=== PATIENT | female | born 1950 | race Caucasian/White ===

== ENCOUNTER 2018-02-22 16:07 | Inpatient (IN) | payer MEDICARE, OTHER ==
[2018-02-22] MEDS ORDERED: SODIUM CHLORIDE 0.9% 1,000 ML IV ONE (16:22)
--- NOTE | 2018-02-22 16:26 | ED ---
General Adult HPI - General Stated complaint: altered mental status Time Seen by Provider: 02/22/18 16:10 Source: RN notes reviewed - History of Present Illness Initial comments: This is a 67-year-old female presents emergency Department via EMS. Roommate called EMS because they stated that she had not the couch and 5-6 days. Patient is an alcoholic however friend stated he hadn't water any alcohol on a couple of days. Patient is a very poor historian and cannot contribute to any of the history she currently is alert and oriented 1 does not know which hospital she is at and does not know the date or the year. EMS also states she was too weak to walk up the stairs which is been ongoing for quite a while but her not getting off the couch for days is unusual. Patient doesn't have any complaints and doesn't appear to be distress but she appears to be very dry. There is been no history of any trauma. At this point time I have no further history. - Related Data Home Medications Medication Instructions Recorded Confirmed Aspirin 325 mg PO DAILY PRN 08/28/13 11/02/14 traZODone HCL [Desyrel] 50 mg PO QID 11/20/13 11/02/14 Pregabalin [Lyrica] 75 mg PO DAILY 09/11/14 11/02/14 clonazePAM [KlonoPIN] 0.5 mg PO BID 09/11/14 11/02/14 Gabapentin [Neurontin] 400 mg PO BID 11/02/14 11/02/14 Previous Rx's Medication Instructions Recorded Moxifloxacin [Vigamox] 1 drops OP QID 30 Days bottle 09/13/14 Acetaminophen-Codeine 300-30mg 1 each PO Q6H PRN #20 tablet 11/02/14 [Tylenol #3] Ibuprofen [Motrin] 600 mg PO Q6HR PRN #40 day 11/02/14 Allergies Allergy/AdvReac Type Severity Reaction Status Date / Time No Known Allergies Allergy Verified 11/02/14 12:12 Review of Systems ROS Statement: Those systems with pertinent positive or pertinent negative responses have been documented in the HPI. ROS Other: All systems not noted in ROS Statement are negative. Past Medical History Additional Past Medical History / Comment(s): drug abuse, broken collar bone, hepatitis C History of Any Multi-Drug Resistant Organisms: None Reported Additional Past Surgical History / Comment(s): abd surgery as an . right knee Past Anesthesia/Blood Transfusion Reactions: No Reported Reaction Past Psychological History: Anxiety, Depression Smoking Status: Current every day smoker Past Alcohol Use History: Abuse, Daily Past Drug Use History: Cocaine, Heroin, IV Drug Use, Marijuana, Methamphetamine , Opiates, Prescription Drug Abuse Additional Drug Use History / Comment(s): Pt states she was clean from drugs and alcohol for over 30 days when she relapsed last night and did heroin and drank a pint of vodka General Exam - General Exam Comments Initial Comments: GENERAL: Patient is well-developed and well-nourished. Patient is nontoxic and well- hydrated and is in no acute distress. ENT: Neck is soft and supple. No significant lymphadenopathy is noted. Patient has dry mucous membranes Neck has full range of motion without eliciting any pain. EYES: The sclera were anicteric and conjunctiva were pink and moist. Extraocular movements were intact and pupils were equal round and reactive to light. Eyelids were unremarkable. PULMONARY: Unlabored respirations. Good breath sounds bilaterally. No audible rales rhonchi or wheezing was noted. CARDIOVASCULAR: There is a regular rate and rhythm without any murmurs gallops or rubs. Femoral pulses are equal bilaterally. DP pulses are normal. ABDOMEN: Soft and nontender with normal bowel sounds. No palpable organomegaly was noted. There is no palpable pulsatile mass. SKIN: Skin is clear with no lesions or rashes and otherwise unremarkable. NEUROLOGIC: Patient is alert and oriented 1. Cranial nerves II through XII are grossly intact. Motor and sensory are also intact. Motor and sensory appear to be intact but she is diffusely weak bilaterally Normal speech, volume and content. Symmetrical smile. MUSCULOSKELETAL: Normal extremities with adequate strength and full range of motion. No lower extremity swelling or edema. No calf tenderness. LYMPHATICS: No significant lymphadenopathy is noted PSYCHIATRIC: Unable to assess since she is only alert and oriented 1 Course Vital Signs 02/22/18 02/22/18 02/22/18 16:30 16:35 17:00 Temperature 98.3 F Pulse Rate 92 98 101 H Respiratory 18 18 17 Rate Blood Pressure 118/77 118/77 121/75 O2 Sat by Pulse 99 100 100 Oximetry 02/22/18 02/22/18 02/22/18 17:30 18:00 18:30 Temperature Pulse Rate 96 99 80 Respiratory 17 16 18 Rate Blood Pressure 118/81 115/57 128/87 O2 Sat by Pulse 97 98 97 Oximetry Medical Decision Making - Medical Decision Making EKG shows sinus tachycardia 103 bpm ID interval 228 QRSs 82 QT interval 358 QTC is 460. Patient's EKG shows slight ST segment depression in precordial leads V4 V5 and V6. Urine came back with greater than 182 white cells I treated the patient for urinary tract infection with 2 g Rocephin. Computed tomography scan of the brain shows no acute normalities. I spoke with Dr. Olivo and he agreed to admit the patient admitted the patient wrote admitting orders. - Lab Data Result diagrams: 02/22/18 16:30 02/22/18 16:30 Lab Results 02/22/18 02/22/18 02/22/18 Range/Units 16:30 16:30 16:30 WBC (3.8-10.6) k/uL RBC (3.80-5.40) m/uL Hgb (11.4-16.0) gm/dL Hct (34.0-46.0) % MCV (80.0-100.0) fL MCH (25.0-35.0) pg MCHC (31.0-37.0) g/dL RDW (11.5-15.5) % Plt Count (150-450) k/uL Neutrophils % % Lymphocytes % % Monocytes % % Eosinophils % % Basophils % % Neutrophils # (1.3-7.7) k/uL Lymphocytes # (1.0-4.8) k/uL Monocytes # (0-1.0) k/uL Eosinophils # (0-0.7) k/uL Basophils # (0-0.2) k/uL Macrocytosis PT (9.0-12.0) sec INR (<1.2) APTT (22.0-30.0) sec Sodium 142 (137-145) mmol/L Potassium 3.5 (3.5-5.1) mmol/L Chloride 98 (98-107) mmol/L Carbon Dioxide 25 (22-30) mmol/L Anion Gap 19 mmol/L BUN 28 H (7-17) mg/dL Creatinine 0.57 (0.52-1.04) mg/dL Est GFR (CKD-EPI)AfAm >90 (>60 ml/min/1.73 sqM) Est GFR (CKD-EPI)NonAf >90 (>60 ml/min/1.73 sqM) Glucose 121 H (74-99) mg/dL POC Glucose (mg/dL) (75-99) mg/dL POC Glu Spreading Machine Operator ID Plasma Lactic Acid Rich 2.3 H* (0.7-2.0) mmol/L Calcium 9.4 (8.4-10.2) mg/dL Total Bilirubin 0.8 (0.2-1.3) mg/dL AST 60 H (14-36) U/L ALT 26 (9-52) U/L Alkaline Phosphatase 92 (38-126) U/L Ammonia <9 (<30) umol/L Total Creatine Kinase 484 H (30-135) U/L CK-MB (CK-2) 3.5 H (0.0-2.4) ng/mL CK-MB (CK-2) Rel Index 0.7 Troponin I 0.026 (0.000-0.034) ng/mL Total Protein 7.6 (6.3-8.2) g/dL Albumin 4.3 (3.5-5.0) g/dL Urine Color Urine Appearance (Clear) Urine pH (5.0-8.0) Ur Specific [place] (1.001-1.035) Urine Protein (Negative) Urine Glucose (UA) (Negative) Urine Ketones (Negative) Urine Blood (Negative) Urine Nitrite (Negative) Urine Bilirubin (Negative) Urine Urobilinogen (<2.0) mg/dL Ur Leukocyte Esterase (Negative) Urine RBC (0-5) /hpf Urine WBC (0-5) /hpf Amorphous Sediment (None) /hpf Urine Bacteria (None) /hpf Hyaline Casts (0-2) /lpf Urine Mucus (None) /hpf Urine Opiates Screen (NotDetected) Ur Oxycodone Screen (NotDetected) Urine Methadone Screen (NotDetected) Ur Propoxyphene Screen (NotDetected) Ur Barbiturates Screen (NotDetected) U Tricyclic Antidepress (NotDetected) Ur Phencyclidine Scrn (NotDetected) Ur Amphetamines Screen (NotDetected) U Methamphetamines Scrn (NotDetected) U Benzodiazepines Scrn (NotDetected) Urine Cocaine Screen (NotDetected) U Marijuana (THC) Screen (NotDetected) Serum Alcohol <10 mg/dL 02/22/18 02/22/18 02/22/18 Range/Units 16:30 16:30 16:55 WBC 10.7 H (3.8-10.6) k/uL RBC 3.42 L (3.80-5.40) m/uL Hgb 10.9 L (11.4-16.0) gm/dL Hct 34.1 (34.0-46.0) % MCV 99.8 (80.0-100.0) fL MCH 31.9 (25.0-35.0) pg MCHC 32.0 (31.0-37.0) g/dL RDW 15.5 (11.5-15.5) % Plt Count 557 H (150-450) k/uL Neutrophils % 85 % Lymphocytes % 9 % Monocytes % 5 % Eosinophils % 1 % Basophils % 0 % Neutrophils # 9.1 H (1.3-7.7) k/uL Lymphocytes # 1.0 (1.0-4.8) k/uL Monocytes # 0.5 (0-1.0) k/uL Eosinophils # 0.1 (0-0.7) k/uL Basophils # 0.0 (0-0.2) k/uL Macrocytosis Slight PT 10.2 (9.0-12.0) sec INR 0.9 (<1.2) APTT 21.2 L (22.0-30.0) sec Sodium (137-145) mmol/L Potassium (3.5-5.1) mmol/L Chloride (98-107) mmol/L Carbon Dioxide (22-30) mmol/L Anion Gap mmol/L BUN (7-17) mg/dL Creatinine (0.52-1.04) mg/dL Est GFR (CKD-EPI)AfAm (>60 ml/min/1.73 sqM) Est GFR (CKD-EPI)NonAf (>60 ml/min/1.73 sqM) Glucose (74-99) mg/dL POC Glucose (mg/dL) 133 H (75-99) mg/dL POC Glu Spreading Machine Operator ID Sarah Covarrubias Plasma Lactic Acid Rich (0.7-2.0) mmol/L Calcium (8.4-10.2) mg/dL Total Bilirubin (0.2-1.3) mg/dL AST (14-36) U/L ALT (9-52) U/L Alkaline Phosphatase (38-126) U/L Ammonia (<30) umol/L Total Creatine Kinase (30-135) U/L CK-MB (CK-2) (0.0-2.4) ng/mL CK-MB (CK-2) Rel Index Troponin I (0.000-0.034) ng/mL Total Protein (6.3-8.2) g/dL Albumin (3.5-5.0) g/dL Urine Color Urine Appearance (Clear) Urine pH (5.0-8.0) Ur Specific [place] (1.001-1.035) Urine Protein (Negative) Urine Glucose (UA) (Negative) Urine Ketones (Negative) Urine Blood (Negative) Urine Nitrite (Negative) Urine Bilirubin (Negative) Urine Urobilinogen (<2.0) mg/dL Ur Leukocyte Esterase (Negative) Urine RBC (0-5) /hpf Urine WBC (0-5) /hpf Amorphous Sediment (None) /hpf Urine Bacteria (None) /hpf Hyaline Casts (0-2) /lpf Urine Mucus (None) /hpf Urine Opiates Screen (NotDetected) Ur Oxycodone Screen (NotDetected) Urine Methadone Screen (NotDetected) Ur Propoxyphene Screen (NotDetected) Ur Barbiturates Screen (NotDetected) U Tricyclic Antidepress (NotDetected) Ur Phencyclidine Scrn (NotDetected) Ur Amphetamines Screen (NotDetected) U Methamphetamines Scrn (NotDetected) U Benzodiazepines Scrn (NotDetected) Urine Cocaine Screen (NotDetected) U Marijuana (THC) Screen (NotDetected) Serum Alcohol mg/dL 02/22/18 Range/Units 17:05 WBC (3.8-10.6) k/uL RBC (3.80-5.40) m/uL Hgb (11.4-16.0) gm/dL Hct (34.0-46.0) % MCV (80.0-100.0) fL MCH (25.0-35.0) pg MCHC (31.0-37.0) g/dL RDW (11.5-15.5) % Plt Count (150-450) k/uL Neutrophils % % Lymphocytes % % Monocytes % % Eosinophils % % Basophils % % Neutrophils # (1.3-7.7) k/uL Lymphocytes # (1.0-4.8) k/uL Monocytes # (0-1.0) k/uL Eosinophils # (0-0.7) k/uL Basophils # (0-0.2) k/uL Macrocytosis PT (9.0-12.0) sec INR (<1.2) APTT (22.0-30.0) sec Sodium (137-145) mmol/L Potassium (3.5-5.1) mmol/L Chloride (98-107) mmol/L Carbon Dioxide (22-30) mmol/L Anion Gap mmol/L BUN (7-17) mg/dL Creatinine (0.52-1.04) mg/dL Est GFR (CKD-EPI)AfAm (>60 ml/min/1.73 sqM) Est GFR (CKD-EPI)NonAf (>60 ml/min/1.73 sqM) Glucose (74-99) mg/dL POC Glucose (mg/dL) (75-99) mg/dL POC Glu Spreading Machine Operator ID Plasma Lactic Acid Rich (0.7-2.0) mmol/L Calcium (8.4-10.2) mg/dL Total Bilirubin (0.2-1.3) mg/dL AST (14-36) U/L ALT (9-52) U/L Alkaline Phosphatase (38-126) U/L Ammonia (<30) umol/L Total Creatine Kinase (30-135) U/L CK-MB (CK-2) (0.0-2.4) ng/mL CK-MB (CK-2) Rel Index Troponin I (0.000-0.034) ng/mL Total Protein (6.3-8.2) g/dL Albumin (3.5-5.0) g/dL Urine Color Dark Brown Urine Appearance Cloudy H (Clear) Urine pH 6.0 (5.0-8.0) Ur Specific [place] 1.019 (1.001-1.035) Urine Protein 1+ H (Negative) Urine Glucose (UA) Negative (Negative) Urine Ketones 3+ H (Negative) Urine Blood Negative (Negative) Urine Nitrite Negative (Negative) Urine Bilirubin 1+ H (Negative) Urine Urobilinogen 6.0 (<2.0) mg/dL Ur Leukocyte Esterase Large H (Negative) Urine RBC 5 (0-5) /hpf Urine WBC >182 H (0-5) /hpf Amorphous Sediment Few H (None) /hpf Urine Bacteria Occasional H (None) /hpf Hyaline Casts 39 H (0-2) /lpf Urine Mucus Many H (None) /hpf Urine Opiates Screen Not Detected (NotDetected) Ur Oxycodone Screen Not Detected (NotDetected) Urine Methadone Screen Not Detected (NotDetected) Ur Propoxyphene Screen Not Detected (NotDetected) Ur Barbiturates Screen Not Detected (NotDetected) U Tricyclic Antidepress Not Detected (NotDetected) Ur Phencyclidine Scrn Not Detected (NotDetected) Ur Amphetamines Screen Not Detected (NotDetected) U Methamphetamines Scrn Not Detected (NotDetected) U Benzodiazepines Scrn Not Detected (NotDetected) Urine Cocaine Screen Not Detected (NotDetected) U Marijuana (THC) Screen Not Detected (NotDetected) Serum Alcohol mg/dL Disposition Clinical Impression: Dehydration, History of alcoholism, Urinary tract infection, Altered mental status Disposition: ADMITTED IP TO THIS [facility] Referrals: None,Stated [Primary Care Provider] - 1-2 days Time of Disposition: 19:20
[2018-02-22] MEDS ORDERED: SODIUM CHLORIDE 0.9% 1,000 ML with MVI, ADULT NO.4 WITH VIT K 10 ML, THIAMINE 100 MG, F... IV ONE ×4 (16:30)
[2018-02-22 17:08] LABS: ALT 26 U/L (9-52); AST 60 U/L (14-36); Albumin 4.3 g/dL (3.5-5.0); Alcohol <10 mg/dL; Alkaline Phosphatase 92 U/L (38-126); Ammonia <9 umol/L (<30); Anion Gap 19 mmol/L; Blood Urea Nitrogen 28 mg/dL (7-17); Calcium 9.4 mg/dL (8.4-10.2); Carbon Dioxide 25 mmol/L (22-30); Chloride 98 mmol/L (98-107); Glucose 121 mg/dL (74-99); Potassium 3.5 mmol/L (3.5-5.1); Sodium 142 mmol/L (137-145); Total Bilirubin 0.8 mg/dL (0.2-1.3); Total Protein 7.6 g/dL (6.3-8.2)
[2018-02-22 17:10] LABS: Glucose,Whole Blood 133 mg/dL (75-99)
[2018-02-22 17:11] LABS: Basophils % (A) 0 %; Eosinophils # (A) 0.1 k/uL (0-0.7); Eosinophils % (A) 1 %; HCT 34.1 % (34.0-46.0); HGB 10.9 gm/dL (11.4-16.0); Lymphocytes % (A) 9 %; MCH 31.9 pg (25.0-35.0); MCV 99.8 fL (80.0-100.0); Macrocytosis Slight; Mean Platelet Volume 7.3; Monocytes # (A) 0.5 k/uL (0-1.0); Monocytes % (A) 5 %; Neutrophils # (A) 9.1 k/uL (1.3-7.7); Neutrophils % (A) 85 %; Platelet Count 557 k/uL (150-450); RBC 3.42 m/uL (3.80-5.40); RDW 15.5 % (11.5-15.5); WBC 10.7 k/uL (3.8-10.6)
[2018-02-22 17:16] LABS: Lactic Acid, Venous 2.3 mmol/L (0.7-2.0)
[2018-02-22 17:24] LABS: Creatine Kinase MB 3.5 ng/mL (0.0-2.4); Troponin I 0.026 ng/mL (0.000-0.034)
[2018-02-22 17:25] LABS: INR 0.9 (<1.2); Prothrombin Time 10.2 sec (9.0-12.0)
[2018-02-22 17:26] LABS: Amorphous Sediment,Urine Few /hpf; Appearance,Urine Cloudy (Clear); Bacteria,Urine Occasional /hpf; Bilirubin,Urine 1+ (Negative); Blood,Urine Negative (Negative); Color,Urine Dark Brown; Glucose,Urine (UA) Negative (Negative); Hyaline Casts,Urine 39 /lpf (0-2); Ketones,Urine 3+ (Negative); Leukocyte Esterase,Urine Large (Negative); Mucus,Urine Many /hpf; Nitrite,Urine Negative (Negative); Protein,Urine 1+ (Negative); RBC,Urine 5 /hpf (0-5); Specific Gravity,Urine 1.019 (1.001-1.035); WBC,Urine >182 /hpf (0-5)
[2018-02-22 17:34] LABS: Partial Thromboplastin Time 21.2 sec (22.0-30.0)
[2018-02-22 17:36] LABS: Amphetamine Screen,Urine Not Detected (NotDetected); Barbiturate Screen,Urine Not Detected (NotDetected); Benzodiazepines Screen,Urine Not Detected (NotDetected); Cocaine Screen,Urine Not Detected (NotDetected); Methadone Screen, Urine Not Detected (NotDetected); Opiate Screen,Urine Not Detected (NotDetected); Oxycodone Screen, Urine Not Detected (NotDetected); Phencyclidine Screen,Urine Not Detected (NotDetected); Tricyclic Antidepressant,Urine Not Detected (NotDetected); Urn Cannabinoid Scrn Not Detected (NotDetected)
[2018-02-22] MEDS ORDERED: cefTRIAXone 2,000 MG in SODIUM CHLORIDE 0.9% 100 ML IVPB STA (17:50)
--- NOTE | 2018-02-22 18:16 | CT ---
EXAMINATION: CT brain wo con DATE AND TIME: 02/22/2018 5:38 PM CLINICAL INDICATION: PHH; altered mental status TECHNIQUE: Standard departmental protocol.; 1099.4; COMPARISON: 11/20/2013 FINDINGS: The calvarium is intact. There is no intracranial hemorrhage. There is no intracranial mass or mass effect. No definite new intra-axial or extra-axial attenuation defect. The ventricles are mildly more prominent than the previous study and they are also mildly more promin ent than the sulcal pattern and basal cisterns. This is a nonspecific finding, but can correlate with a clinical diagnosis of normal pressure hydrocephalus. The paranasal sinuses, middle ear cavities, and mastoid sinus air cells are clear. The orbits are unremarkable. IMPRESSION: 1. No definite acute process. 2. Mild panventriculomegaly as discussed.
--- NOTE | 2018-02-22 19:08 | XR ---
EXAMINATION: XR chest 2V DATE AND TIME: 02/22/2018 6:28 PM CLINICAL INDICATION: PHH; altered mental status TECHNIQUE: Departmental protocol COMPARISON: 11/02/2014 FINDINGS: The lungs are clear. The pleural spaces are negative. The cardiac silhouette is not enlarged. Aortic ectasia redemonstrated. The skeletal structures and soft tissues are negative for acute findings. IMPRESSION: NO ACUTE PROCESS.
[2018-02-22] MEDS ORDERED: LORazepam 2 MG/ML INJ IV PRN ×3 (19:22)
[2018-02-23] MEDS: AMPICILLIN-SULBACTAM 3 GM in SODIUM CHLORIDE 0.9% 100 ML IVPB SCH ×2 (12:22→17:12)
[2018-02-23] MEDS: THIAMINE 100 MG TAB PO SCH ×2 (12:22→17:06)
[2018-02-23] MEDS: SODIUM CHLORIDE 0.9% 1,000 ML IV SCH ×2 (12:24→17:06)
--- NOTE | 2018-02-23 17:21 | HP ---
HISTORY AND PHYSICAL CHIEF COMPLAINT: Altered mental status. HISTORY OF PRESENT ILLNESS: This is the first known admission for this 67-year-old white female. She is very confused and no history can be obtained. According to the nurse's staff, she was admitted with diagnosis of UTI and mental status changes as well as dehydration. Whoever brought her in, states that she had been in bed for 4 or 5 days. She has a slight breakdown over her coccyx, apparently. REVIEW OF SYSTEMS: Unobtainable. Past medical history, family history and personal and social histories are unobtainable as well. She had a chest x-ray which in the ER was normal as was a CT of the brain. The patient is not known to be allergic to any medication or food. It is not clear what she has been on, but she may be taking Tylenol 3, aspirin, Klonopin, gabapentin, ibuprofen, moxifloxacin, pregabalin, trazodone. Nothing is known for sure about her substance history. It is rumored that she has a long-standing history of alcohol and substance abuse in the past. PHYSICAL EXAM: Temp is 97.8, blood pressure is 129/65, respirations 17, and pulse is 80. In general, she appeared to be slender and very lethargic. Lymph nodes are not enlarged. Head, ears, eyes, nose, mouth, and throat were grossly normal. Neck veins are not distended. Carotids normal. Chest is clear. Cardiac exam demonstrated what sounded like sinus rhythm and no murmurs or extra sounds. Abdomen is soft and there are no masses. EXTREMITIES: Normal. Neurologically, she had no focal deficits, but she was confused. IMPRESSION: 1. Mental status changes. 2. Positive urinary tract infection. 3. Dehydration. 4. History of alcohol and substance abuse. PLAN: 1. Bed rest. 2. IV fluids. 3. Rehydrate. 4. Neurologic workup. MMODL / IJN: [id number] /
--- NOTE | 2018-02-23 17:36 | PN ---
PROGRESS NOTE DATE OF SERVICE: 02/23/2018 CHIEF COMPLAINT: Mental status changes. HISTORY OF PRESENT ILLNESS: This lady is about the same. She remains confused and semi-alert. PHYSICAL EXAMINATION: Chest is clear. Cardiac exam is normal. Abdomen is soft, nontender. IMPRESSION: 1. Mental status changes. 2. History of substance abuse. PLAN: Continue monitoring neurologically and continue workup. MMODL / IJN: [id number] /
[2018-02-24] MEDS: AMPICILLIN-SULBACTAM 3 GM in SODIUM CHLORIDE 0.9% 100 ML IVPB SCH ×5 (01:08→23:17)
[2018-02-24] MEDS: SODIUM CHLORIDE 0.9% 1,000 ML IV SCH ×4 (01:08→17:51)
--- NOTE | 2018-02-24 09:56 | CDI ---
Documentation Clarification Form Date: CDS: Veena Martino, CCS, CCDS Admit Date: 02/22/2018 Patient Name: Sury Gusman Discharge Date: ATTENTION: The Clinical Documentation Specialists (CDI) and [facility] Coding Staff appreciate your assistance in clarifying documentation. Please respond to the clarification below the line at the bottom and electronically sign. The CDI & [facility] Coding staff will review the response and follow-up if needed. Please note: Queries are made part of the Legal Health Record. If you have any questions, please contact the author of this message via ITS. Dr. Kadeem Rosado: Per the History & Physicial, the patient is diagnosed with altered mental status changes. History/Risk Factors: Alcoholic, Hx alcohol & drug abuse. Smoker. Hx Hep C. Clinical Indicators: Presented very confused, dehydrated with positive UTI. Labs: WBC 10.7^, Hgb 10.9*, Pl Ct 557^, BUN 28^, Gluc 121^, Lactic Acid 2.3^^, AST 60^, CKMB 3.5^, Pos UA. CT Brain: Mild panventriculomegaly. EKG: R 103 sinus tachycardia. Treatment: IV fl boluses x2, IV Rocephin, IV Thiamine, IV Ativan x3 Consults: Neurology (pending) In your professional opinion, can you please clarify the specific type of Encephalopathy, if known? Hypertensive Encephalopathy Metabolic Encephalopathy Septic Encephalopathy Toxic Encephalopathy Hepatic Encephalopathy Other, please specify Unable to determine (Last Revision: June 2017) MTDD
[2018-02-24] MEDS: THIAMINE 100 MG TAB PO SCH ×2 (12:30→17:49)
--- NOTE | 2018-02-24 17:49 | PN ---
PROGRESS NOTE CHIEF COMPLAINT: Continued confusion and altered mental status. HISTORY OF PRESENT ILLNESS: This lady's status is just about the same. She remains very confused. She does not have any focal deficits. PHYSICAL EXAM: Chest is clear. The cardiac exam is normal. Abdomen is soft, nontender and neurologically other than her cognition problems she seems to be intact. IMPRESSION: 1. Mental status changes. 2. Continue to monitor to see if she begins to improve. MMODL / IJN: [id number] /
[2018-02-25] MEDS: AMPICILLIN-SULBACTAM 3 GM in SODIUM CHLORIDE 0.9% 100 ML IVPB SCH ×3 (05:21→17:09)
[2018-02-25] MEDS: SODIUM CHLORIDE 0.9% 1,000 ML IV SCH ×4 (05:22→22:23)
[2018-02-25] MEDS: THIAMINE 100 MG TAB PO SCH ×2 (12:36→16:59)
--- NOTE | 2018-02-25 15:40 | PN ---
PROGRESS NOTE CHIEF COMPLAINT: Encephalopathy. HISTORY OF PRESENT ILLNESS: This lady is not improving. She remains extremely confused and agitated. This may be a permanent neurologic state for her. PHYSICAL EXAMINATION: She is awake and alert, but confused. Chest is clear. Cardiac exam is normal. The abdomen is soft, nontender. IMPRESSION: 1. Mental status changes. 2. Urinary tract infection. 3. ? chronic encephalopathy or dementia? PLAN: Start to consider [facility] placement. MMODL / IJN: [id number] /
--- NOTE | 2018-02-25 23:21 | P.CNNES ---
History of Present Illness Consult date: 02/25/18 Requesting physician: Kadeem Rosado Reason for Consult: altered mental status Chief complaint: altered mental status History of Present Illness: Neurology is consulting on a 67 year old female for altered mental status. she has a history of current UTI with antibiotic therapy. she also has a history of alcoholism. She was brought to the ED by EMS after the patient had not left the couch in 5-6 days. Patient is a known alcoholic and a friend stated that she had not had any water or alcohol in a couple of days. Patient is a poor historian and cannot contribute to any history. Patient is currently alert and oriented 1. Patient does not know which hospital she is currently at. Patient urinalysis notes large leuk esterase WBCs of greater than 182 on patient had elevated plasma lactic acid, elevated AST, elevated BUN, elevated WBCs and low RBCs and hemoglobin. Patient also elevated platelet count. On contact, patient was supine in bed, resting in no acute distress. No visitors her family were in the room. Patient was alert and oriented to person only. Review of Systems systems not noted in HPI are negative. Past Medical History Additional Past Medical History / Comment(s): drug abuse, broken collar bone, hepatitis C, uti History of Any Multi-Drug Resistant Organisms: None Reported Additional Past Surgical History / Comment(s): abd surgery as an . right knee Past Anesthesia/Blood Transfusion Reactions: No Reported Reaction Past Psychological History: Anxiety, Depression Smoking Status: Current every day smoker Past Alcohol Use History: Abuse, Daily Past Drug Use History: Cocaine, Heroin, IV Drug Use, Marijuana, Methamphetamine , Opiates, Prescription Drug Abuse Additional Drug Use History / Comment(s): Pt states she was clean from drugs and alcohol for over 30 days when she relapsed last night and did heroin and drank a pint of vodka Medications and Allergies Home Medications Medication Instructions Recorded Confirmed Type No Known Home Medications 02/25/18 02/25/18 History Allergies Allergy/AdvReac Type Severity Reaction Status Date / Time No Known Allergies Allergy Verified 11/02/14 12:12 Physical Examination - Vital Signs Vital Signs: Vital Signs Temp Pulse Resp BP Pulse Ox 02/25/18 16:00 16 02/25/18 15:00 97.9 F 98 16 121/63 96 02/25/18 08:00 72 18 02/25/18 06:37 97.0 F L 72 18 151/70 91 L 02/24/18 23:00 98.1 F 73 18 133/75 96 Intake and Output 02/25/18 02/25/18 02/25/18 06:59 14:59 22:59 Other: Voiding Method Diaper Diaper Incontinent Incontinent # Voids 4 2 2 Weight 53.5 kg General appearance: Alert & oriented x1, no apparent distress. Head: Atraumatic, normocephalic, normal inspection Eyes: PERRLA, EOMI. Ear, nose and throat: Normal exam, mucous membranes moist Neck: Normal inspection, absent tenderness, lymphadenopathy. Respiratory: No increased work of breathing Cardiovascular: Regular rate, rhythm GI/abdominal: No guarding, no rigidity Extremities: moves all extremities Neurological: (unable to fully complete exam as patient does not actively participate in exam, some aspects of this exam or observation only.) cranial nerves II through XII intactgrossly intact no lateralizing weaknesspatient is able to move all 4 extremities equally no seizure activity noted on physical exam no pronator drift and no nystagmus. Strength: full in all 4 extremitiesmoves all 4 extremities does not actively participate in physical exam Sensation: Left lower extremity: normal Right lower extremity: normal Left upper extremity: normal Right upper extremity:normal Psychological: Mood and Affect appropriate for setting Results CT brain: No acute abnormality EEG: Ordered MRI brain: Ordered Updated ammonia level: Ordered - Laboratory Findings CBC and BMP: 02/22/18 16:30 02/22/18 16:30 Abnormal Lab Findings: Abnormal Labs 02/22/18 02/22/18 02/22/18 16:30 16:30 16:30 WBC RBC Hgb Plt Count Neutrophils # APTT BUN 28 H Glucose 121 H POC Glucose (mg/dL) Plasma Lactic Acid Rich 2.3 H* AST 60 H Total Creatine Kinase 484 H CK-MB (CK-2) 3.5 H Urine Appearance Urine Protein Urine Ketones Urine Bilirubin Ur Leukocyte Esterase Urine WBC Amorphous Sediment Urine Bacteria Hyaline Casts Urine Mucus 02/22/18 02/22/18 02/22/18 16:30 16:30 16:55 WBC 10.7 H RBC 3.42 L Hgb 10.9 L Plt Count 557 H Neutrophils # 9.1 H APTT 21.2 L BUN Glucose POC Glucose (mg/dL) 133 H Plasma Lactic Acid Rich AST Total Creatine Kinase CK-MB (CK-2) Urine Appearance Urine Protein Urine Ketones Urine Bilirubin Ur Leukocyte Esterase Urine WBC Amorphous Sediment Urine Bacteria Hyaline Casts Urine Mucus 02/22/18 17:05 WBC RBC Hgb Plt Count Neutrophils # APTT BUN Glucose POC Glucose (mg/dL) Plasma Lactic Acid Rich AST Total Creatine Kinase CK-MB (CK-2) Urine Appearance Cloudy H Urine Protein 1+ H Urine Ketones 3+ H Urine Bilirubin 1+ H Ur Leukocyte Esterase Large H Urine WBC >182 H Amorphous Sediment Few H Urine Bacteria Occasional H Hyaline Casts 39 H Urine Mucus Many H Assessment and Plan (1) Urinary tract infection Current Visit: Yes Status: Acute Code(s): N39.0 - URINARY TRACT INFECTION, SITE NOT SPECIFIED SNOMED Code(s): 87998685 (2) Infectious encephalopathy Current Visit: Yes Status: Acute Code(s): G93.49 - OTHER ENCEPHALOPATHY; B99.9 - UNSPECIFIED INFECTIOUS DISEASE SNOMED Code(s): 82493001 (3) Altered mental status Current Visit: Yes Status: Acute Code(s): R41.82 - ALTERED MENTAL STATUS, UNSPECIFIED SNOMED Code(s): 570391078 (4) History of alcoholism Current Visit: Yes Status: Acute Code(s): F10.21 - ALCOHOL DEPENDENCE, IN REMISSION SNOMED Code(s): 356565434 Plan: With regard to the concern that the patient's condition is continuing to decline relates to mentation cognitive functioning, patient's condition is likely multifactorial and further diagnostic workup is warranted: infectious encephalopathy secondary to bacterial/infectious processUTI. Continue to treat underlying etiology at this time. EEG is ordered and pending. Updated ammonia level has been ordered, TSH, B12 level also been ordered. Rule out dementia- CT of the brain was unremarkable and given the patient's further decline, MRI of the brain will be ordered at this time, carotid doppler study. Status: Neurology will continue to follow and provide updates as needed or warranted. Contact our office with any questions I have discussed the plan of care with the physician prior to implementation and he agrees with the plan as implemented.
[2018-02-26] MEDS: AMPICILLIN-SULBACTAM 3 GM in SODIUM CHLORIDE 0.9% 100 ML IVPB SCH ×4 (00:06→18:38)
[2018-02-26] MEDS: SODIUM CHLORIDE 0.9% 1,000 ML IV SCH ×3 (04:44→18:42)
--- NOTE | 2018-02-26 12:16 | US ---
EXAMINATION TYPE: US carotid duplex BILAT DATE OF EXAM: 02/26/2018 COMPARISON: NONE CLINICAL HISTORY: 67-year-old female right sided weakness possible CVA. Poor historian. TECHNIQUE: Carotid duplex ultrasound examination. Direct Doppler criteria was utilized. FINDINGS: Bridge/Structure Inspection Team Leader notes: Limited exam due to patient being uncooperative EXAM MEASUREMENTS: RIGHT: Peak Systolic Velocity (PSV) cm/sec ----- Right CCA: 46.9 ----- Right ICA: 66.2 ----- Right ECA: 52.3 ICA/CCA ratio: 1.4 RIGHT: End Diastole cm/sec ----- Right CCA: 14.2 ----- Right ICA: 25.5 ----- Right ECA: 0.0 LEFT: Peak Systolic Velocity (PSV) cm/sec ----- Left CCA: 41.8 ----- Left ICA: 66.2 ----- Left ECA: 84.5 ICA/CCA ratio: 1.6 LEFT: End Diastole cm/sec ----- Left CCA: 13.9 ----- Left ICA: 23.5 ----- Left ECA: 18.6 VERTEBRALS (direction of flow): Right Vertebral: Antegrade Left Vertebral: Antegrade Rhythm: Normal Bridge/Structure Inspection Team Leader notes: No wall thickening. No elevated velocities or significant stenosis. Plaque seen i n right bulb. IMPRESSION: No hemodynamically significant stenosis appreciated in either internal carotid artery. Criteria for Assigning % of Stenosis / Diameter reduction (Estimation based on the indirect measurements of the internal carotid artery velocities (ICA PSV). 1. Normal (no stenosis)=ICA PSV < 125 cm/s: ratio < 2.0: ICA EDV<40 cm/s. 2. Less than 50% stenosis=ICA PSV < 125 cm/s: ratio < 2.0: ICA EDV<40 cm/s. 3. 50 to 69% stenosis=ICA PSV of 125 to 230 cm/s: ration 2.0 ? 4.0: ICA EDV 40-100 cm/s. 4. Greater than 70% stenosis to near occlusion= ICA PSV > 230 cm/s: ratio > 4.0: ICA EDV > 100 cm/s. 5. Near occlusion= ICA PSV velocities may be low or undetectable: variable ratio and ICA EDV. 6. Total occlusion=unable to detect flow.
[2018-02-26] MEDS: THIAMINE 100 MG TAB PO SCH ×2 (12:57→18:39)
--- NOTE | 2018-02-26 17:06 | P.PN ---
Subjective Progress Note Date: 02/26/18 Principal diagnosis: altered mental status Neurology is following on a 67-year-old female for altered mental status. Patient has a history of current UTI with antibiotic therapy. Patient also has a history of alcoholism. Patient was at home and found debilitated on a couch for a proximally 5-6 days. Patient is a known alcoholic and her friend stated she had not had any water or alcohol in a couple days. Patient is a poor historian and cannot contribute to any history. Patient's previous urinalysis noted large leukocyte esterase, elevated plasma lactic acid, elevated AST, elevated BUN, elevated WBCs although RBCs and hemoglobin. Patient also elevated platelet count. Patient is alert and oriented 1. Since rounding, patient's carotid Doppler study returned no hemodynamically significant stenosis. Vitamin B12, lactic acid and TSH levels were all normal. Patient cannot have an MRI at this time. EEG has been taken but not read. Objective - Vital Signs Vital signs: Vital Signs Temp 97.7 F 02/26/18 15:00 Pulse 69 02/26/18 15:00 Resp 18 02/26/18 15:00 BP 139/79 02/26/18 15:00 Pulse Ox 96 02/26/18 15:00 Intake & Output 02/25/18 02/26/18 02/26/18 18:59 06:59 18:59 Intake Total 1300 Balance 1300 Weight 53.5 kg 53.5 kg Intake: Intake, IV Titration 1300 Amount Ampicillin-Sulbactam 3 gm 100 In Sodium Chloride 0.9% 100 ml @ 200 mls/hr IVPB Q6HR BANG Rx#:[id number] Sodium Chloride 0.9% 1, 1200 000 ml @ 150 mls/hr IV . Q6H40M BANG Rx#:[id number] Other: Voiding Method Diaper Diaper Diaper Incontinent Incontinent Incontinent # Voids 2 2 - Exam General appearance: Alert & oriented x1, no apparent distress. Head: Atraumatic, normocephalic, normal inspection Eyes: PERRLA, EOMI. Ear, nose and throat: Normal exam, mucous membranes moist Neck: Normal inspection, absent tenderness, lymphadenopathy. Respiratory: No increased work of breathing Cardiovascular: Regular rate, rhythm GI/abdominal: No guarding, no rigidity Extremities: moves all extremities Neurological: exam is significantly limited as patient is unwilling to participate/cooperate with provider cranial nerves II through XII -grossly intactWeber only limited assessment due to patient unwilling to participate for any significant period of time. no lateralizing weakness observed no seizure activity noted on physical exam no pronator drift and no nystagmus. Strength: appears to be full in all 4 extremities Sensation: unable to be assessed as patient does not allow provider to engage in physical contact Psychological: Mood and Affect appropriate for setting - Labs CBC & Chem 7: 02/22/18 16:30 02/22/18 16:30 Labs: Microbiology - Last 24 Hours (Table) 02/22/18 16:30 Blood Culture - Preliminary Blood No Growth after 72 hours Assessment and Plan (1) Urinary tract infection Narrative/Plan: Continued to correct underlying etiology. Defer to primary team Current Visit: Yes Status: Acute Code(s): N39.0 - URINARY TRACT INFECTION, SITE NOT SPECIFIED SNOMED Code(s): 28862287 (2) Infectious encephalopathy Narrative/Plan: Patient's current status is likely related to infectious encephalopathy and may also be related to dementia. However we are unable to fully assess this at this time. Given the patient's significant history of infection at presentation in the ED, it is reasonable that the patient is experiencing encephalopathy that is infectious at a minimum. Patient may have an underlying dementia as well. We can reasses for demntia once her infectious process is corrected. Current Visit: Yes Status: Acute Code(s): G93.49 - OTHER ENCEPHALOPATHY; B99.9 - UNSPECIFIED INFECTIOUS DISEASE SNOMED Code(s): 12850729 (3) Altered mental status Narrative/Plan: Multifactorial as noted above Current Visit: Yes Status: Acute Code(s): R41.82 - ALTERED MENTAL STATUS, UNSPECIFIED SNOMED Code(s): 777721008 (4) History of alcoholism Narrative/Plan: defer to primary team Current Visit: Yes Status: Acute Code(s): F10.21 - ALCOHOL DEPENDENCE, IN REMISSION SNOMED Code(s): 259253552 Plan: Status: Neurology will continue to follow and provide updates as needed or warranted. Contact our office with any questions I have discussed the plan of care with the physician prior to implementation and he agrees with the plan as implemented.
--- NOTE | 2018-02-26 18:45 | PN ---
PROGRESS NOTE CHIEF COMPLAINT: Confusion. HISTORY OF PRESENT ILLNESS: This lady remains the same. She may be a little bit more alert, but she still is not oriented. Physical exam is normal. IMPRESSION: 1. Mental status changes. 2. Encephalopathy. PLAN: Continue to monitor and she will have to be placed in a facility after she leaves here unless she clears. MMODL / IJN: [id number] /
[2018-02-27] MEDS: AMPICILLIN-SULBACTAM 3 GM in SODIUM CHLORIDE 0.9% 100 ML IVPB SCH ×5 (00:33→23:06)
[2018-02-27] MEDS: SODIUM CHLORIDE 0.9% 1,000 ML IV SCH ×4 (01:31→20:29)
--- NOTE | 2018-02-27 11:33 | EEG ---
ELECTROENCEPHALOGRAM REPORT DATE OF SERVICE: 02/26/2018. REASON FOR TESTING: Altered mental status. DESCRIPTION OF THE PROCEDURE: This EEG was performed using a 21 channel digital electroencephalograph, following international 10-20 system. DESCRIPTION OF THE RECORDING: From the beginning of the tracing, and with patient's eyes closed, the background rhythm was mostly consisting of 7 Hz theta frequency in the posterior occipital leads. No obvious asymmetry is seen. Photic stimulation was performed with no driving response seen. No pathological waves were elicited. Hyperventilation was not performed. Occasional movement and muscle artifacts are seen. More frequent muscle artifacts are noticed later in the tracing. The patient remains awake throughout the tracing. No epileptiform discharges were seen. INTERPRETATION: This awake EEG is abnormal due to the presence of generalized slowing of the background rhythm, mostly in the theta range. This is consistent with mild encephalopathy. No epileptiform discharges were seen. The absence of epileptiform discharges does not rule out the diagnosis of epilepsy; therefore clinical correlation is recommended. MMSUNDEEP / KHOI: [id number] /
[2018-02-27] MEDS: THIAMINE 100 MG TAB PO SCH ×3 (12:57→17:11)
--- NOTE | 2018-02-27 13:13 | PN ---
PROGRESS NOTE CHIEF COMPLAINT: Encephalopathy. HISTORY OF PRESENT ILLNESS: This lady's condition remains the same. She is still confused. PHYSICAL EXAM: Chest is clear. Cardiac exam is normal. Abdomen is soft, nontender. IMPRESSION: 1. Altered mental status. 2. Urinary tract infection. 3. Encephalopathy. PLAN: Continue to follow. She is being followed by Neurology as well. MMODL / IJN: [id number] /
[2018-02-28] MEDS: AMPICILLIN-SULBACTAM 3 GM in SODIUM CHLORIDE 0.9% 100 ML IVPB SCH ×4 (05:11→23:43)
[2018-02-28] MEDS: SODIUM CHLORIDE 0.9% 1,000 ML IV SCH ×4 (05:12→23:42)
[2018-02-28] MEDS: THIAMINE 100 MG TAB PO SCH ×2 (11:28→17:16)
--- NOTE | 2018-02-28 18:20 | PN ---
PROGRESS NOTE CHIEF COMPLAINT: Encephalopathy. HISTORY OF PRESENT ILLNESS: This lady's condition is just about the same. She is still minimally responsive and not coherent. There has been no other abnormality and we will have to start working on discharge planning. PHYSICAL EXAM: Chest is clear. Cardiac exam is normal. Abdomen is soft. Extremities are normal. Vital signs are normal. IMPRESSION: Encephalopathy. PLAN: No change in program and work on discharge plan. MMODL / IJN: [id number] /
[2018-03-01] MEDS: SODIUM CHLORIDE 0.9% 1,000 ML IV SCH ×4 (06:35→23:55)
[2018-03-01] MEDS: AMPICILLIN-SULBACTAM 3 GM in SODIUM CHLORIDE 0.9% 100 ML IVPB SCH ×4 (06:38→23:54)
[2018-03-01] MEDS: THIAMINE 100 MG TAB PO SCH ×2 (11:38→16:10)
[2018-03-02] MEDS: AMPICILLIN-SULBACTAM 3 GM in SODIUM CHLORIDE 0.9% 100 ML IVPB SCH ×2 (05:57→11:26)
[2018-03-02] MEDS: SODIUM CHLORIDE 0.9% 1,000 ML IV SCH ×3 (08:17→20:58)
[2018-03-02] MEDS: THIAMINE 100 MG TAB PO SCH ×2 (11:26→16:24)
[2018-03-02 15:38] LABS: Anisocytosis Slight; Basophils % (A) 0 %; Eosinophils # (A) 0.2 k/uL (0-0.7); Eosinophils % (A) 3 %; HCT 26.9 % (34.0-46.0); Hypochromasia Slight; Lymphocytes # (A) 0.7 k/uL (1.0-4.8); Lymphocytes % (A) 13 %; MCH 32.6 pg (25.0-35.0); MCHC 32.8 g/dL (31.0-37.0); MCV 99.6 fL (80.0-100.0); Macrocytosis Slight; Mean Platelet Volume 9.4; Monocytes # (A) 0.5 k/uL (0-1.0); Monocytes % (A) 10 %; Neutrophils # (A) 4.1 k/uL (1.3-7.7); Neutrophils % (A) 73 %; Platelet Count 280 k/uL (150-450); RBC 2.71 m/uL (3.80-5.40); RDW 17.1 % (11.5-15.5); WBC 5.6 k/uL (3.8-10.6)
[2018-03-02 15:47] LABS: HGB 8.8 gm/dL (11.4-16.0)
[2018-03-02 15:52] LABS: ALT 34 U/L (9-52); AST 43 U/L (14-36); Albumin 2.7 g/dL (3.5-5.0); Alkaline Phosphatase 59 U/L (38-126); Anion Gap 10 mmol/L; Blood Urea Nitrogen <2 mg/dL (7-17); Calcium 6.7 mg/dL (8.4-10.2); Carbon Dioxide 29 mmol/L (22-30); Chloride 103 mmol/L (98-107); Glucose 110 mg/dL (74-99); Sodium 142 mmol/L (137-145); Total Bilirubin 0.6 mg/dL (0.2-1.3); Total Protein 5.2 g/dL (6.3-8.2)
[2018-03-02 15:56] LABS: Potassium 1.9 mmol/L (3.5-5.1)
[2018-03-02] MEDS: POTASSIUM CHLORIDE ER 20 MEQ TAB.ER PO SCH ×3 (16:23→19:52)
[2018-03-02] MEDS: POTASSIUM CHLORIDE 20 MEQ in WATER FOR INJECTION 1 100ML.BAG IVPB SCH ×4 (16:24→22:04)
--- NOTE | 2018-03-02 17:22 | PN ---
PROGRESS NOTE DATE OF SERVICE: 03/02/2018. CHIEF COMPLAINT: Encephalopathy and failure to thrive. HISTORY OF PRESENT ILLNESS: This lady continues to do poorly. She remains confused. She is eating and drinking, but not well. PHYSICAL EXAMINATION: She is alert. Chest is clear. The cardiac exam is normal. Abdomen is soft, nontender. IMPRESSION: 1. Encephalopathy. 2. General debility. PLAN: 1. Continue to try and encourage her to eat and increase her fluid intake. 2. Work on discharge planning. Apparently a guardian is to be appointed. MMODL / IJN: [id number] /
--- NOTE | 2018-03-02 17:55 | PN ---
PROGRESS NOTE DATE OF SERVICE: 03/01/2018 CHIEF COMPLAINT: Encephalopathy. HISTORY OF PRESENT ILLNESS: There has been no basic change in this lady's condition. She remains confused. We are working on a discharge plan. PHYSICAL EXAMINATION: Color is good. Chest is clear. Cardiac exam is normal. Abdomen is soft, nontender. IMPRESSION: Encephalopathy. PLAN: No change in program. MMODL / IJN: [id number] /
--- NOTE | 2018-03-02 19:19 | XR ---
EXAMINATION TYPE: XR chest 2V DATE OF EXAM: 03/02/2018 COMPARISON: 02/22/2018 HISTORY: Chest pain TECHNIQUE: Frontal and lateral views of the chest are obtained. FINDINGS: There is blunting of both costophrenic angles posteriorly. This is more on the left side. There is no heart failure. Heart size is normal. Bony thorax is intact. IMPRESSION: There are new bilateral pleural effusions compared to last exam. No heart failure seen.
[2018-03-03] MEDS: SODIUM CHLORIDE 0.9% 1,000 ML IV SCH ×3 (05:53→17:51)
[2018-03-03] MEDS: POTASSIUM CHLORIDE 10 MEQ in WATER FOR INJECTION 1 100ML.BAG IVPB SCH ×6 (08:23→14:20)
[2018-03-03] MEDS ORDERED: Magnesium Replacement Protocol 1 EACH MISC MISCELLANE PRN (11:04)
[2018-03-03] MEDS: MAGNESIUM SULFATE-D5W PMX 1 GM in DEXTROSE/WATER 1 100ML.BAG IVPB SCH ×3 (11:47→13:48)
[2018-03-03] MEDS ORDERED: CALCIUM CARBONATE 500 MG CHEWABLE PO PRN (12:22)
[2018-03-03] MEDS: THIAMINE 100 MG TAB PO SCH ×3 (12:41→17:51)
--- NOTE | 2018-03-03 18:56 | PN ---
PROGRESS NOTE DATE OF SERVICE: 03/03/2018 CHIEF COMPLAINT: Encephalopathy. HISTORY OF PRESENT ILLNESS: This lady was doing fairly well, but her potassium, magnesium and calcium have suddenly dropped. These are being replaced. There is no other significant change. PHYSICAL EXAMINATION: Breath sounds are heard bilaterally and the cardiac exam is normal. Abdomen is soft. She remains confused. IMPRESSION: 1. Encephalopathy. 2. Dehydration. 3. Urinary tract infection. 4. Hypokalemia. 5. Hypocalcemia. 6. Hypomagnesemia. PLAN: Replace potassium, calcium and magnesium. MMODL / IJN: [id number] /
[2018-03-03] MEDS: POTASSIUM CHLORIDE ER 20 MEQ TAB.ER PO SCH ×2 (19:10→19:11)
[2018-03-03] MEDS ORDERED: Potassium Replacement Protocol 1 EACH MISC MISCELLANE PRN (23:06)
[2018-03-04] MEDS: POTASSIUM CHLORIDE 20 MEQ in WATER FOR INJECTION 1 100ML.BAG IVPB SCH ×3 (00:50→06:07)
[2018-03-04] MEDS: SODIUM CHLORIDE 0.9% 1,000 ML IV SCH ×4 (03:10→17:21)
[2018-03-04 11:29] LABS: Anion Gap 7 mmol/L; Blood Urea Nitrogen <2 mg/dL (7-17); Calcium 7.3 mg/dL (8.4-10.2); Carbon Dioxide 25 mmol/L (22-30); Chloride 108 mmol/L (98-107); Glucose 96 mg/dL (74-99); Potassium 3.6 mmol/L (3.5-5.1); Sodium 140 mmol/L (137-145)
[2018-03-04] MEDS: THIAMINE 100 MG TAB PO SCH ×2 (11:53→17:20)
[2018-03-05] MEDS: SODIUM CHLORIDE 0.9% 1,000 ML IV SCH ×4 (02:02→23:24)
[2018-03-05] MEDS: THIAMINE 100 MG TAB PO SCH ×2 (12:13→16:44)
--- NOTE | 2018-03-05 15:16 | PN ---
PROGRESS NOTE DATE OF SERVICE: 03/04/2018. CHIEF COMPLAINT: Encephalopathy. HISTORY OF PRESENT ILLNESS: This lady's condition continues. Electrolytes have been corrected. We are waiting for guardianship after which she will be placed. PHYSICAL EXAM: She is awake, alert, but confused. There has been no change otherwise. IMPRESSION: 1. Chronic encephalopathy. 2. Electrolytes imbalance. 3. Urinary tract infection. PLAN: Wait for guardian be appointed so we can move forward on discharge planning. MMSUNDEEP / ROBERTN: [id number] /
--- NOTE | 2018-03-05 16:34 | PN ---
PROGRESS NOTE DATE OF SERVICE: 03/05/2018. CHIEF COMPLAINT: Encephalopathy. HISTORY OF PRESENT ILLNESS: There has been no interval change in this lady's condition and we are awaiting her guardianship which apparently is not until March 12. MMODL / IJN: [id number] /
[2018-03-06] MEDS: SODIUM CHLORIDE 0.9% 1,000 ML IV SCH ×3 (07:01→17:17)
[2018-03-06] MEDS: THIAMINE 100 MG TAB PO SCH ×2 (11:07→17:17)
[2018-03-06 11:15] LABS: Anion Gap 6 mmol/L; Blood Urea Nitrogen <2 mg/dL (7-17); Calcium 8.1 mg/dL (8.4-10.2); Carbon Dioxide 26 mmol/L (22-30); Chloride 108 mmol/L (98-107); Glucose 111 mg/dL (74-99); Magnesium 1.4 mg/dL (1.6-2.3); Sodium 140 mmol/L (137-145)
[2018-03-06 11:30] LABS: Potassium 2.6 mmol/L (3.5-5.1)
[2018-03-06] MEDS ORDERED: Potassium Replacement Protocol 1 EACH MISC MISCELLANE PRN ×2 (11:31→19:18)
[2018-03-06] MEDS ORDERED: Magnesium Replacement Protocol 1 EACH MISC MISCELLANE PRN (11:37)
[2018-03-06] MEDS: POTASSIUM CHLORIDE ER 20 MEQ TAB.ER PO SCH ×5 (11:39→22:05)
[2018-03-06] MEDS: MAGNESIUM SULFATE-D5W PMX 1 GM in DEXTROSE/WATER 1 100ML.BAG IVPB SCH ×3 (12:55→15:23)
--- NOTE | 2018-03-06 16:09 | MISC ---
MISCELLANOUS REPORT Metabolic encephalopathy. MMODL / IJN: [id number] /
--- NOTE | 2018-03-06 16:39 | PN ---
PROGRESS NOTE CHIEF COMPLAINT: Encephalopathy and urinary tract infection. HISTORY OF PRESENT ILLNESS: This lady remains stable. She is still confused. Court date is on March 12. MMODL / IJN: [id number] /
[2018-03-07] MEDS: SODIUM CHLORIDE 0.9% 1,000 ML IV SCH ×4 (01:47→22:09)
[2018-03-07 09:06] LABS: Potassium 3.7 mmol/L (3.5-5.1)
[2018-03-07] MEDS: THIAMINE 100 MG TAB PO SCH ×2 (12:02→17:32)
[2018-03-08] MEDS: SODIUM CHLORIDE 0.9% 1,000 ML IV SCH ×4 (04:21→19:59)
[2018-03-08 10:13] LABS: Anisocytosis Slight; Basophils % (A) 0 %; Eosinophils # (A) 0.2 k/uL (0-0.7); Eosinophils % (A) 4 %; HCT 26.8 % (34.0-46.0); HGB 8.6 gm/dL (11.4-16.0); Hypochromasia Moderate; Lymphocytes % (A) 23 %; MCH 32.5 pg (25.0-35.0); MCHC 32.2 g/dL (31.0-37.0); MCV 101.2 fL (80.0-100.0); Macrocytosis Slight; Mean Platelet Volume 9.9; Monocytes # (A) 0.5 k/uL (0-1.0); Monocytes % (A) 11 %; Neutrophils # (A) 2.5 k/uL (1.3-7.7); Neutrophils % (A) 59 %; Platelet Count 277 k/uL (150-450); RBC 2.64 m/uL (3.80-5.40); RDW 16.9 % (11.5-15.5); WBC 4.2 k/uL (3.8-10.6)
[2018-03-08 10:23] LABS: ALT 31 U/L (9-52); AST 47 U/L (14-36); Albumin 2.5 g/dL (3.5-5.0); Alkaline Phosphatase 67 U/L (38-126); Anion Gap 7 mmol/L; Blood Urea Nitrogen <2 mg/dL (7-17); Calcium 8.4 mg/dL (8.4-10.2); Carbon Dioxide 23 mmol/L (22-30); Chloride 111 mmol/L (98-107); Glucose 92 mg/dL (74-99); Potassium 3.2 mmol/L (3.5-5.1); Sodium 141 mmol/L (137-145); Total Bilirubin 0.6 mg/dL (0.2-1.3); Total Protein 4.9 g/dL (6.3-8.2)
[2018-03-08] MEDS: POTASSIUM CHLORIDE 10 MEQ in WATER FOR INJECTION 1 100ML.BAG IVPB SCH ×4 (11:46→16:42)
[2018-03-08] MEDS: THIAMINE 100 MG TAB PO SCH ×2 (11:48→17:21)
--- NOTE | 2018-03-08 16:50 | PN ---
PROGRESS NOTE DATE OF SERVICE: 03/07/2018 CHIEF COMPLAINT: Encephalopathy. HISTORY OF PRESENT ILLNESS: This lady condition continues to be fairly stable. She is still running low potassiums and these are being dealt with. PHYSICAL EXAM: She remains confused. She is awake and alert. Chest is clear. Cardiac exam is normal. IMPRESSION: 1. Encephalopathy. 2. Electrolyte imbalance. 3. Hypomagnesemia. 4. Hypocalcemia. PLAN: Await court date and then eventual placement. MMJASONL / ROBERTN: [id number] /
--- NOTE | 2018-03-08 17:14 | PN ---
PROGRESS NOTE DATE OF SERVICE: 03/08/2018 CHIEF COMPLAINT: Encephalopathy and hypokalemia. HISTORY OF PRESENT ILLNESS: This lady continues to run low potassiums. This will be replaced again. PHYSICAL EXAM: All unchanged. Cardiac exam is normal. IMPRESSION: 1. Encephalopathy. 2. Hypokalemia. 3. Hypomagnesemia. 4. Hypocalcemia. PLAN: Continue current program and add oral potassium. MMODL / IJN: [id number] /
[2018-03-08] MEDS: CALCIUM CARB-MAG CARB-FOLIC 1 EACH TAB PO SCH (17:21)
[2018-03-08] MEDS: POTASSIUM CHLORIDE ER 10 MEQ TAB.ER.PRT PO SCH (20:04)
[2018-03-09] MEDS: THIAMINE 100 MG TAB PO SCH ×2 (07:49→16:59)
[2018-03-09] MEDS: POTASSIUM CHLORIDE ER 10 MEQ TAB.ER.PRT PO SCH ×2 (07:50→20:46)
[2018-03-09] MEDS: CALCIUM CARB-MAG CARB-FOLIC 1 EACH TAB PO SCH ×2 (07:51→16:58)
[2018-03-10] MEDS: CALCIUM CARB-MAG CARB-FOLIC 1 EACH TAB PO SCH ×2 (08:26→18:29)
[2018-03-10] MEDS: POTASSIUM CHLORIDE ER 10 MEQ TAB.ER.PRT PO SCH ×2 (08:27→20:26)
[2018-03-10 11:09] LABS: Anisocytosis Slight; HGB 9.8 gm/dL (11.4-16.0); Hypochromasia Moderate; MCH 32.4 pg (25.0-35.0); MCHC 31.6 g/dL (31.0-37.0); MCV 102.6 fL (80.0-100.0); Macrocytosis Moderate; Mean Platelet Volume 9.5; Platelet Count 318 k/uL (150-450); RBC 3.02 m/uL (3.80-5.40); RDW 17.1 % (11.5-15.5); WBC 4.1 k/uL (3.8-10.6)
[2018-03-10 11:24] LABS: Anion Gap 5 mmol/L; Blood Urea Nitrogen 6 mg/dL (7-17); Carbon Dioxide 25 mmol/L (22-30); Chloride 111 mmol/L (98-107); Glucose 144 mg/dL (74-99); Potassium 4.6 mmol/L (3.5-5.1); Sodium 141 mmol/L (137-145)
[2018-03-10] MEDS: THIAMINE 100 MG TAB PO SCH ×2 (13:27→18:29)
--- NOTE | 2018-03-10 14:19 | PN ---
PROGRESS NOTE DATE OF SERVICE: 03/09/2018. CHIEF COMPLAINT: Encephalopathy. HISTORY OF PRESENT ILLNESS: This lady has been fairly stable. She is not eating or drinking and consideration is being given to parenteral feeding, but were still waiting for guardianship. PHYSICAL EXAM: She is unchanged. She is slightly pale, but her chest is clear and cardiac exam is normal. IMPRESSION: 1. Encephalopathy. 2. Failure to thrive. PLAN: Await guardianship after which she may be a candidate for a PEG tube placement. MMODL / IJN: [id number] /
--- NOTE | 2018-03-10 14:40 | PN ---
PROGRESS NOTE DATE OF SERVICE: 03/10/2018. CHIEF COMPLAINT: Encephalopathy and malnutrition. HISTORY OF PRESENT ILLNESS: This lady continues not to eat and if this continues, she will definitely require a parenteral feeding. Court date is set up for later this week. PHYSICAL EXAM: She is slightly dehydrated. Chest is clear. Cardiac exam is normal. Abdomen is soft, nontender. IMPRESSION: 1. Encephalopathy. 2. Electrolyte imbalance. 3. Malnutrition. PLAN: 1. Await guardianship. 2. When explained that it may be necessary to insert a feeding tube, she states that she does not want it. MMODL / IJN: [id number] /
[2018-03-11] MEDS: THIAMINE 100 MG TAB PO SCH ×2 (07:50→17:03)
[2018-03-11] MEDS: CALCIUM CARB-MAG CARB-FOLIC 1 EACH TAB PO SCH ×2 (07:50→17:03)
[2018-03-11] MEDS: POTASSIUM CHLORIDE ER 10 MEQ TAB.ER.PRT PO SCH ×2 (07:50→21:28)
--- NOTE | 2018-03-11 14:11 | CDI ---
Documentation Clarification Form Date: 03/11/2018 1:59:29 PM From: Veena HerreraMartinoDENA quintero, CCDS Admit Date: 02/22/2018 7:20:00 PM Patient Name: Sury Gusman Visit Number: [id number] Discharge Date: ATTENTION: The Clinical Documentation Specialists (CDI) and [facility] Coding Staff appreciate your assistance in clarifying documentation. Please respond to the clarification below the line at the bottom and electronically sign. The CDI & [facility] Coding staff will review the response and follow-up if needed. Please note: Queries are made part of the Legal Health Record. If you have any questions, please contact the author of this message via ITS. Dr. Kadeem Rosado: Malnutrition has been documented in the 03/10 attending progress notes. History/Risk Factors: Alcohol & substance abuse, Hep C, UTI, anxiety & depression, smoker. Clinical Indicators: Presented with altered mental status, diagnosed with a UTI , dehydration & metabolic encephalopathy. Labs: Total protein 7.6 on admission, now down to 4.9*; Albumin 4.3 on admission , now down to 2.5*. Current BMI: 21.0 Nutritional Assessment: Has stage II pressure ulcer on coccyx, confused. Refusing intake since admission. Underweight. Muscle loss. Depressed interosseous muscle. Prominent bones. No muscle definition in calves. Refusing feeding tube. Treatment: IV fluids bolus on admission, IV Rocephin, IV Ativan x3, IV fl rate 150, IV Ampicillin, IV Kcl, IV MagSulfate, Ensure supplement. In your professional opinion, can you please clarify if these findings signify one of the following conditions? Mild Protein-Calorie Malnutrition Moderate Protein-Calorie Malnutrition Severe Protein-Calorie Malnutrition Other condition, please specify Unable to determine (Last Revision: June 2017) MTDD
[2018-03-12] MEDS: CALCIUM CARB-MAG CARB-FOLIC 1 EACH TAB PO SCH ×2 (10:03→18:13)
[2018-03-12] MEDS: THIAMINE 100 MG TAB PO SCH ×2 (10:03→18:13)
[2018-03-12] MEDS: POTASSIUM CHLORIDE ER 10 MEQ TAB.ER.PRT PO SCH ×2 (10:03→20:50)
--- NOTE | 2018-03-12 15:15 | PN ---
PROGRESS NOTE DATE OF SERVICE: 03/11/2018 CHIEF COMPLAINT: Encephalopathy. HISTORY OF PRESENT ILLNESS: This lady has been stable and still not eating. Court date is today for her guardian. PHYSICAL EXAM: Unchanged. IMPRESSION: Encephalopathy. PLAN: Await guardianship and then make a determination going forward as to discharge planning and nutritional decisions. MMODL / IJN: [id number] /
--- NOTE | 2018-03-12 15:29 | PN ---
PROGRESS NOTE CHIEF COMPLAINT: Encephalopathy and malnutrition. HISTORY OF PRESENT ILLNESS: There has been no change in this lady's condition. There was a court date yesterday and, apparently, she was signed a public guardian. It is reported that her 2 daughters that went to the hearing and made clear what they felt was her mother's intention not to be placed on artificial life supports or nutrition. We are now waiting to hear from the guardian. PHYSICAL EXAMINATION: Physical exam is unchanged. IMPRESSION: 1. Malnutrition. 2. Encephalopathy. 3. History of substance abuse. PLAN: Await directions regarding feeding tubes from the court-appointed guardian. MMODL / IJN: [id number] /
--- NOTE | 2018-03-12 20:57 | MISC ---
MISCELLANOUS REPORT QUERY: Moderate protein-calorie malnutrition. MMODL / IJN: [id number] /
[2018-03-13] MEDS: CALCIUM CARB-MAG CARB-FOLIC 1 EACH TAB PO SCH ×2 (08:47→17:27)
[2018-03-13] MEDS: POTASSIUM CHLORIDE ER 10 MEQ TAB.ER.PRT PO SCH ×2 (08:47→20:43)
[2018-03-13] MEDS: THIAMINE 100 MG TAB PO SCH ×2 (08:48→17:27)
[2018-03-14] MEDS: CALCIUM CARB-MAG CARB-FOLIC 1 EACH TAB PO SCH ×2 (10:04→18:25)
[2018-03-14] MEDS: THIAMINE 100 MG TAB PO SCH ×2 (10:05→18:25)
[2018-03-14] MEDS: POTASSIUM CHLORIDE ER 10 MEQ TAB.ER.PRT PO SCH ×2 (10:05→22:31)
--- NOTE | 2018-03-14 22:23 | PN ---
PROGRESS NOTE DATE OF SERVICE: 03/13/2018. CHIEF COMPLAINT: Encephalopathy. HISTORY OF PRESENT ILLNESS: There has been no interval change in this lady's condition. Apparently a guardian has been has been appointed and we are waiting for direction for her long-term care. MMODL / IJN: [id number] /
--- NOTE | 2018-03-14 22:26 | PN ---
PROGRESS NOTE DATE OF SERVICE: 03/14/2018 CHIEF COMPLAINT: Encephalopathy. HISTORY OF PRESENT ILLNESS: There has been no interval change in this lady's condition. We are still waiting to hear from the guardian. PHYSICAL EXAMINATION: Unchanged. She still remains lethargic and dehydrated. IMPRESSION: Encephalopathy. PLAN: Await assistance from guardian regarding placement. MMODL / IJN: [id number] /
[2018-03-15 07:52] VITALS: BP 156/73; PULSE 92; RESP 18; TEMP 98
[2018-03-15] MEDS: CALCIUM CARB-MAG CARB-FOLIC 1 EACH TAB PO SCH (08:14)
[2018-03-15] MEDS: POTASSIUM CHLORIDE ER 10 MEQ TAB.ER.PRT PO SCH (08:14)
[2018-03-15 11:21] VITALS: BMI 20.7
--- NOTE | 2018-03-15 11:26 | DS ---
DISCHARGE SUMMARY CHIEF COMPLAINT: Altered mental status, dehydration, urinary tract infection, and history of alcoholism and substance abuse. HISTORY OF PRESENT ILLNESS AND PHYSICAL EXAM: Details of this lady's history and physical can be found in the initial workup. LABORATORY STUDIES: While she was in a hospital she had laboratory studies, details which can be found in the laboratory section of her chart. COURSE IN HOSPITAL: After admission she was placed on bedrest and started on intravenous fluids and CIWA protocol. She became very somnolent. As she began to awaken, she never regained her normal cognitive function. She had no cranial nerve or sensory motor deficits. She remained confused and failed adequate fluid and nutritional intake. Eventually, a guardian was appointed. Two daughters did not want responsibility, but made it clear that their mother would not want artificial feeding. Hence, feeding tube or PEG tube was not placed. Arrangements were made for [facility] to [facility] to a [facility] on the . FINAL DIAGNOSIS: 1. Alcoholic encephalopathy. 2. Chronic alcoholism. 3. History of substance abuse. 4. Urinary tract infection. OPERATIONS: None. CONSULTATION: None. She is improved. MMODL / IJN: [id number] /
[2018-03-15] MEDS: THIAMINE 100 MG TAB PO SCH (11:42)
== END 2018-03-15 13:16 | DRG 57 ==
LOC: EC 16:07 → 4MS4W 19:20 → EEVIPCON 19:20 → 4MS4W 20:38
PROVIDERS: ADMIT Family Medicine; ATTEND Family Medicine
DX: G31.2 Degeneration of nervous system due to alcohol (principal); E44.0 Moderate protein-calorie malnutrition; N39.0 Urinary tract infection, site not specified; Z68.20 Body mass index [BMI] 20.0-20.9, adult; E83.42 Hypomagnesemia; E83.51 Hypocalcemia; E86.0 Dehydration; E87.6 Hypokalemia; F10.20 Alcohol dependence, uncomplicated; F11.10 Opioid abuse, uncomplicated; F15.11 Other stimulant abuse, in remission; F14.11 Cocaine abuse, in remission; F12.11 Cannabis abuse, in remission; F17.210 Nicotine dependence, cigarettes, uncomplicated; R62.7 Adult failure to thrive; Z79.82 Long term (current) use of aspirin; Z79.899 Other long term (current) drug therapy; Z86.19 Personal history of other infectious and parasitic diseases; F32.9 Major depressive disorder, single episode, unspecified; F41.9 Anxiety disorder, unspecified
CPT/HCPCS: 36415; 70450; 71046; 80048; 80053; 80306; 80320; 81001; 82140; 82550; 82553; 82607; 83605; 83735; 84132; 84443; 84484; 85025; 85027; 85610; 85730; 87040; 87324; 93005; 93880; 94760; 95816; 96360; 96365; 96366; 96368; 96375; 99285